=== PATIENT | male | born 1990 | race Caucasian/White ===

== ENCOUNTER 2023-04-10 13:41 | Emergency (ER) | payer BC ==
[~2023-04-10] VITALS: Ht 177.8 cm; Wt 93.0 kg
[2023-04-10 14:27] VITALS: BP 138/78; TEMP 98.4; O2SAT 98
== END 2023-04-10 14:28 | disposition home or self-care (01) ==
LOC: ER 13:41
DX: S30.0XXA Contusion of lower back and pelvis, initial encounter (principal); V03.99XA Pedestrian with other conveyance injured in collision with car, pick-up truck or van, unspecified whether traffic or nontraffic accident, initial encounter; Y93.89 Activity, other specified; Y92.410 Unspecified street and highway as the place of occurrence of the external cause; Y99.8 Other external cause status
CPT/HCPCS: 72170; A4663